=== PATIENT | female | born 1970 | race Caucasian/White ===

== ENCOUNTER 2017-12-20 09:07 | Day surgery (SDC) | payer OTHER, MEDICAID ==
[2017-12-20 10:45] LABS: ADD MAN DIFF? NO
[2017-12-20 10:47] LABS: WHITE BLOOD COUNT 5.8 10^3/ul (4.8-10.8)
[2017-12-20 10:47] LABS: BASOPHILS % 0.3 % (0.0-2.0); EOSINOPHILS % 0.7 % (0.0-7.0); HEMATOCRIT 38.3 % (37.0-47.0); HEMOGLOBIN 12.7 g/dl (12.0-16.0); LYMPHOCYTES # 1.5 10^3/ul (0.8-2.9); LYMPHOCYTES % 26.2 % (15.0-51.0); MEAN CORPUSCULAR HGB CONC 33.2 g/dl (32.0-37.0); MEAN CORPUSCULAR VOLUME 90.5 fl (82.0-101.0); MEAN PLATELET VOLUME 10.7 fl (7.4-10.4); MONOCYTE # 0.4 10^3/ul (0.3-0.9); NEUTROPHIL # 3.9 10^3/ul (1.6-7.5); NEUTROPHILS % 66.6 % (39.0-77.0); PLATELET COUNT 270 10^3/UL (140-415); RED BLOOD COUNT 4.23 10^6/ul (4.20-5.40); RED CELL DISTRIBUTION WIDTH 13.3 % (11.5-14.5)
[2017-12-20 11:14] LABS: ANION GAP 8 (5-13); Estimated GFR > 60 mL/min (>60)
[2017-12-20 11:15] LABS: ALANINE AMINOTRANSFERASE 21 IU/L (13-69); ALBUMIN 4.4 g/dl (3.3-4.9); ALBUMIN/GLOBULIN RATIO 1.15; ALKALINE PHOSPHATASE 61 IU/L (42-121); ASPARTATE AMINO TRANSFERASE 23 IU/L (15-46); BILIRUBIN,INDIRECT 0.4 mg/dl (0-1.1); BILIRUBIN,TOTAL 0.4 mg/dl (0.2-1.3); BLOOD UREA NITROGEN 23 mg/dl (7-20); CARBON DIOXIDE 26 mmol/L (21-31); CHLORIDE 108 mmol/L (97-110); GLUCOSE 85 mg/dl (70-220); SODIUM 142 mmol/L (135-144); TOTAL PROTEIN 8.2 g/dl (6.1-8.1)
[2017-12-20] MEDS ORDERED: ONDANSETRON 4 MG INJ (13:07)
[2017-12-20] MEDS ORDERED: FENTAnyl 50 MCG/ML VIAL (13:07)
[2017-12-20] MEDS ORDERED: METOCLOPRAMIDE 10 MG INJ (13:07)
[2017-12-20] MEDS ORDERED: PROPOFOL 20 ML (13:07)
[2017-12-20] MEDS ORDERED: MIDAZOLAM 1 MG/ML 2 ML INJ (13:07)
[2017-12-20] MEDS ORDERED: CEFAZOLIN 1 GM INJ (13:11)
[2017-12-20] MEDS ORDERED: ONDANSETRON 4 MG INJ IV (13:30)
[2017-12-20] MEDS ORDERED: HYDROmorphONE 1 MG/5 ML IV SYRINGE IV ×3 (13:30)
[2017-12-20] MEDS ORDERED: DIPHENHYDRAMINE 50 MG INJ IV (13:30)
[2017-12-20] MEDS ORDERED: MEPERIDINE 25 MG INJ IV (13:30)
[2017-12-20] MEDS ORDERED: OXYCODONE/ACETAMINOPHEN (5/325) TAB PO ×2 (13:30)
[2017-12-20] MEDS ORDERED: PHENYLephrine (100 MCG/ML) 5ML SYG ×2 (13:31→14:48)
[2017-12-20] MEDS ORDERED: KETOROLAC 30 MG INJ (13:31)
[2017-12-20] MEDS: LIDOCAINE 1%/EPI 30 ML INJ (13:47)
[2017-12-20] MEDS: FERRIC SUBSULFATE 8 GM VIAL TOP (13:48)
[2017-12-20] MEDS ORDERED: EPHEDrine SULFATE 50 MG/5 ML SYG (14:25)
== END 2017-12-20 16:45 | disposition home or self-care (01) ==
LOC: SDS 09:07
DX: D06.9 Carcinoma in situ of cervix, unspecified (principal); N72 Inflammatory disease of cervix uteri
CPT/HCPCS: 57520; 80053; 85025; 86850; 86900; 86901; 88305; 93005